=== PATIENT | male | born 1965 | race Caucasian/White ===

== ENCOUNTER 2019-06-15 19:16 | Inpatient (IN) | payer OTHER ==
[~2019-06-15] VITALS: Ht 177.8 cm; Wt 96.3 kg
[~2019-06-15 19:16] MED LIST: APAP/HYDROCODON1 T13 PO; FLE10 PO; SYN1 PO
[2019-06-15 19:26] VITALS: Ht 177.8 cm; Wt 96.3 kg
[2019-06-15 19:55] LABS: BASOPHIL % 0.7 % (0-2); PLATELET COUNT 284 x10^3mcL (130-400)
[2019-06-15 19:59] LABS: CARBON DIOXIDE 29.8 mmol/L (21-32); CREATININE SERUM 1.9 mg/dL (0.7-1.3); RED CELL DISTRIBUTION WIDTH 16.9 % (11.5-14.5)
[2019-06-15 20:11] LABS: ALBUMIN 3.6 g/dL (3.4-5.0); BILIRUBIN TOTAL 0.7 mg/dL (0.20-1.00)
[2019-06-15] MEDS ORDERED: LEVOXYL0.1 MG PO (21:05)
[2019-06-15 22:44] VITALS: BP 159/98
[2019-06-15 23:09] LABS: T3 TOTAL 1.11 ng/mL
[2019-06-15 23:33] LABS: FREE T4 2.71 ng/dL (0.76-1.46); FREE THYROXINE INDEX 4.1 ug/dL (1.4-4.5); T4(THYROXINE) 11.4 ug/dL (4.7-13.3)
[2019-06-16 06:12] LABS: UA SPECIFIC GRAVITY 1.025 (1.005-1.035); microscopic required? YES; urine erythrocyte TRACE (NEGATIVE)
[2019-06-16 06:13] LABS: BASOPHIL % 0.7 % (0-2); PLATELET COUNT 272 x10^3mcL (130-400)
[2019-06-16 06:20] VITALS: BP 142/95
[2019-06-16 06:22] LABS: AMPHETAMINE QUAL UR POSITIVE (See below)
[2019-06-16 06:22] LABS: CALCIUM 8.8 mg/dL (8.5-10.1); CARBON DIOXIDE 24.6 mmol/L (21-32); CREATININE SERUM 2.1 mg/dL (0.7-1.3); PHOSPHOROUS 4.3 mg/dL (2.5-4.9); POTASSIUM SERUM 4.2 mmol/L (3.5-5.1)
[2019-06-16 06:32] LABS: RED CELL DISTRIBUTION WIDTH 16.5 % (11.5-14.5)
[2019-06-16 07:53] VITALS: BP 156/101
[2019-06-16 08:52] VITALS: BP 173/109
[2019-06-16 12:55] VITALS: BP 141/96
== END 2019-06-16 15:01 | disposition left against medical advice (07) | DRG 190 ==
LOC: ED 19:16 → DU 21:49
PROVIDERS: Emergency Medicine; ADMIT Internal Medicine
DX: I21.4 Non-ST elevation (NSTEMI) myocardial infarction (principal); N17.0 Acute kidney failure with tubular necrosis; I16.1 Hypertensive emergency; E03.9 Hypothyroidism, unspecified; E78.5 Hyperlipidemia, unspecified; D72.829 Elevated white blood cell count, unspecified; I10 Essential (primary) hypertension; G89.29 Other chronic pain; F17.210 Nicotine dependence, cigarettes, uncomplicated; Z53.21 Procedure and treatment not carried out due to patient leaving prior to being seen by health care provider; K40.90 Unilateral inguinal hernia, without obstruction or gangrene, not specified as recurrent; N43.3 Hydrocele, unspecified; J44.9 Chronic obstructive pulmonary disease, unspecified; M54.40 Lumbago with sciatica, unspecified side; Z79.899 Other long term (current) drug therapy
CPT/HCPCS: 82962; 83880; 84439; 85378; 90658; 90732; 94150; G0378; J1644; J1885; J1940; J2270; J7620; Q0092

== ENCOUNTER 2019-09-24 06:50 | Inpatient (IN) | payer OTHER ==
[~2019-09-24] VITALS: Ht 177.8 cm; Wt 98.4 kg
[~2019-09-24 06:50] MED LIST changes: +LEVOXYL0.1 MG PO
[2019-09-24 06:59] VITALS: Ht 177.8 cm; Wt 98.4 kg
[2019-09-24 07:23] LABS: BASOPHIL % 0.5 % (0-2); PLATELET COUNT 329 x10^3mcL (130-400); RED CELL DISTRIBUTION WIDTH 16.1 % (11.5-14.5)
[2019-09-24 08:04] LABS: CALCIUM 8.8 mg/dL (8.5-10.1); CREATININE SERUM 2.4 mg/dL (0.7-1.3); POTASSIUM SERUM 4.2 mmol/L (3.5-5.1)
[2019-09-24 08:08] LABS: ALBUMIN 3.4 g/dL (3.4-5.0); BILIRUBIN TOTAL 0.44 mg/dL (0.20-1.00); CHOLESTEROL/HDL RATIO 3.8; TOTAL PROTEIN, SERUM 7.1 g/dL (6.4-8.2)
[2019-09-24 08:55] LABS: T3 TOTAL 0.4 ng/mL
[2019-09-24 09:18] LABS: UA SPECIFIC GRAVITY 1.015 (1.005-1.035)
[2019-09-24 09:19] LABS: microscopic required? YES
[2019-09-24 09:20] LABS: urine erythrocyte NEGATIVE (NEGATIVE)
[2019-09-24] MEDS ORDERED: LASIX20 MG PO (09:38)
[2019-09-24] MEDS ORDERED: LEVOXYL0.2 MG PO (09:38)
[2019-09-24] MEDS ORDERED: ASPIRIN FOR CHI81 M1 PO (09:38)
[2019-09-24] MEDS ORDERED: ATORVASTATIN CA20 M1 PO (09:39)
[2019-09-24] MEDS ORDERED: TOPROL XL25 MG PO (09:39)
[2019-09-24 10:17] VITALS: BP 157/123
[2019-09-24 10:30] LABS: FREE T4 1.04 ng/dL (0.76-1.46)
[2019-09-24 10:34] LABS: FREE THYROXINE INDEX 0.5 ug/dL (1.4-4.5); T4(THYROXINE) 1.6 ug/dL (4.7-13.3)
[2019-09-24 10:51] LABS: AMPHETAMINE QUAL UR POSITIVE (See below)
[2019-09-24 13:08] VITALS: BP 156/107
[2019-09-24 16:41] VITALS: BP 157/96
== END 2019-09-24 19:37 | disposition left against medical advice (07) | DRG 190 ==
LOC: ED 06:50 → DU 10:46
PROVIDERS: Specialist; ADMIT Internal Medicine
DX: I21.4 Non-ST elevation (NSTEMI) myocardial infarction (principal); I50.23 Acute on chronic systolic (congestive) heart failure; N17.9 Acute kidney failure, unspecified; I42.9 Cardiomyopathy, unspecified; G62.9 Polyneuropathy, unspecified; I11.0 Hypertensive heart disease with heart failure; J44.9 Chronic obstructive pulmonary disease, unspecified; E03.9 Hypothyroidism, unspecified; G89.29 Other chronic pain; M54.9 Dorsalgia, unspecified; F17.210 Nicotine dependence, cigarettes, uncomplicated; Z53.29 Procedure and treatment not carried out because of patient's decision for other reasons; Z60.2 Problems related to living alone; F15.10 Other stimulant abuse, uncomplicated; Z71.6 Tobacco abuse counseling; Z71.51 Drug abuse counseling and surveillance of drug abuser; Z79.899 Other long term (current) drug therapy
CPT/HCPCS: 83880; 84439; G0378; G0480; J1940; J3490; J7030; Q0092

== ENCOUNTER 2019-09-30 11:08 | Inpatient (IN) | payer OTHER ==
[~2019-09-30] VITALS: Ht 177.8 cm; Wt 94.3 kg
[~2019-09-30 11:08] MED LIST changes: +ASPIRIN FOR CHI81 M1 PO; +ATORVASTATIN CA20 M1 PO; +LASIX20 MG PO; +LEVOXYL0.2 MG PO; +TOPROL XL25 MG PO
[2019-09-30 11:19] VITALS: Ht 177.8 cm; Wt 94.3 kg
[2019-09-30 12:23] LABS: BASOPHIL % 0.7 % (0-2); PLATELET COUNT 281 x10^3mcL (130-400)
[2019-09-30 12:30] LABS: CALCIUM 8.8 mg/dL (8.5-10.1); CARBON DIOXIDE 26.2 mmol/L (21-32); CREATININE SERUM 1.9 mg/dL (0.7-1.3)
[2019-09-30 12:38] LABS: ALBUMIN 3.5 g/dL (3.4-5.0); BILIRUBIN TOTAL 0.6 mg/dL (0.20-1.00); TOTAL PROTEIN, SERUM 7.6 g/dL (6.4-8.2)
[2019-09-30 15:25] LABS: CHOLESTEROL/HDL RATIO 3.6
[2019-09-30 15:35] LABS: T3 TOTAL 0.71 ng/mL
[2019-09-30 16:10] LABS: FREE T4 2.01 ng/dL (0.76-1.46); FREE THYROXINE INDEX 2.6 ug/dL (1.4-4.5); T4(THYROXINE) 7.8 ug/dL (4.7-13.3)
[2019-09-30 16:19] VITALS: BP 98/62
[2019-09-30 16:34] VITALS: BP 106/69
[2019-09-30 20:33] VITALS: BP 121/63
[2019-09-30 21:22] LABS: microscopic required? YES; urine erythrocyte NEGATIVE (NEGATIVE)
[2019-09-30 21:44] LABS: AMPHETAMINE QUAL UR POSITIVE (See below)
[2019-10-01 05:27] VITALS: BP 137/97
[2019-10-01 07:39] LABS: BASOPHIL % 0.1 % (0-2); PLATELET COUNT 274 x10^3mcL (130-400)
[2019-10-01 07:40] LABS: RED CELL DISTRIBUTION WIDTH 15.4 % (11.5-14.5)
[2019-10-01 07:47] VITALS: BP 140/102
[2019-10-01 07:52] LABS: POTASSIUM SERUM 4.8 mmol/L (3.5-5.1)
[2019-10-01 08:01] LABS: CREATININE SERUM 2.1 mg/dL (0.7-1.3)
[2019-10-01 08:10] LABS: CALCIUM 8.7 mg/dL (8.5-10.1); CARBON DIOXIDE 25.9 mmol/L (21-32); MAGNESIUM 2.2 mg/dL (1.8-2.4); PHOSPHOROUS 4.1 mg/dL (2.5-4.9)
[2019-10-01 12:31] VITALS: BP 147/89
[2019-10-01 17:24] VITALS: BP 160/110
[2019-10-01 20:50] VITALS: BP 159/92
[2019-10-01 22:05] VITALS: BP 100/50
[2019-10-02 05:10] VITALS: BP 154/122
[2019-10-02 06:41] VITALS: BP 130/88
[2019-10-02 07:40] LABS: CALCIUM 9.3 mg/dL (8.5-10.1); CREATININE SERUM 1.9 mg/dL (0.7-1.3); MAGNESIUM 2.4 mg/dL (1.8-2.4); PHOSPHOROUS 3.5 mg/dL (2.5-4.9); POTASSIUM SERUM 4.3 mmol/L (3.5-5.1)
[2019-10-02 07:58] VITALS: BP 141/85
[2019-10-02 08:02] LABS: PLATELET COUNT 264 x10^3mcL (130-400); RED CELL DISTRIBUTION WIDTH 16.5 % (11.5-14.5)
[2019-10-02 08:03] LABS: BASOPHIL % 0.8 % (0-2)
[2019-10-02 09:24] LABS: CARBON DIOXIDE 25.9 mmol/L (21-32)
[2019-10-02] MEDS ORDERED: COREG3.125 MG PO (10:58)
[2019-10-02 11:41] VITALS: BP 153/103
[2019-10-02 15:16] VITALS: BP 120/89
== END 2019-10-02 16:01 | disposition home or self-care (01) | DRG 194 ==
LOC: ED 11:08 → DU 13:47
PROVIDERS: Emergency Medicine; ADMIT Internal Medicine
DX: I13.0 Hypertensive heart and chronic kidney disease with heart failure and stage 1 through stage 4 chronic kidney disease, or unspecified chronic kidney disease (principal); I21.A1 Myocardial infarction type 2; N17.0 Acute kidney failure with tubular necrosis; I42.9 Cardiomyopathy, unspecified; I50.23 Acute on chronic systolic (congestive) heart failure; I16.9 Hypertensive crisis, unspecified; E78.5 Hyperlipidemia, unspecified; N18.9 Chronic kidney disease, unspecified; F15.10 Other stimulant abuse, uncomplicated; E03.9 Hypothyroidism, unspecified; G89.29 Other chronic pain; M54.40 Lumbago with sciatica, unspecified side; J44.9 Chronic obstructive pulmonary disease, unspecified; G62.9 Polyneuropathy, unspecified; F17.210 Nicotine dependence, cigarettes, uncomplicated; Z68.30 Body mass index [BMI] 30.0-30.9, adult; Z91.14 Patient's other noncompliance with medication regimen; Z79.899 Other long term (current) drug therapy; Z80.9 Family history of malignant neoplasm, unspecified
CPT/HCPCS: 83880; 84439; 97116-GP; G0378; J1644; J1940; J2270; J2405; J3490; Q0092